=== PATIENT | male | born 1940 | race Caucasian/White ===

== ENCOUNTER 2020-12-28 22:52 | Emergency (ER) | payer MEDICARE ==
[~2020-12-28] VITALS: Ht 172.7 cm; Wt 59.1 kg
[2020-12-29 01:45] LABS: GLUCOSE,POINT OF CARE 138 MG/DL (70-110)
[2020-12-29 02:28] VITALS: BP 170/87
== END 2020-12-29 02:29 | disposition home or self-care (01) ==
LOC: EMS 22:57
DX: R45.851 Suicidal ideations (principal); E11.9 Type 2 diabetes mellitus without complications; E78.00 Pure hypercholesterolemia, unspecified; I10 Essential (primary) hypertension; F17.210 Nicotine dependence, cigarettes, uncomplicated; Z73.3 Stress, not elsewhere classified
CPT/HCPCS: 82962; 99285